=== PATIENT | female | born 1945 | race African-American/Black ===

== ENCOUNTER 2017-06-24 13:00 | Outpatient (CLI) | payer OTHER | END 2017-06-24 13:03 | disposition home or self-care (01) | LOC: RAD 501 13:00 | DX: J13 Pneumonia due to Streptococcus pneumoniae (principal) ==

== ENCOUNTER → 2017-06-24 | Outpatient (CLI) | payer OTHER ==
[~2017-06-24] VITALS: Ht 152.4 cm; Wt 94.3 kg
[~2017-06-24] MED LIST: ASPIRIN1 GM; ELIQUIS2.5 MG; LISINOPRIL20 MG; METFORMIN HCL500 M1; SIMVASTATIN20 MG
== END | disposition home or self-care (01) ==
LOC: PPHC 11:04
DX: J06.9 Acute upper respiratory infection, unspecified (principal)

== ENCOUNTER 2019-10-12 14:39 | Emergency (ER) | payer OTHER ==
[~2019-10-12] VITALS: Ht 175.3 cm; Wt 84.8 kg
== END 2019-10-12 16:45 | disposition home or self-care (01) ==
LOC: ER 14:39
DX: R07.89 Other chest pain (principal)

== ENCOUNTER 2022-11-21 14:57 | Emergency (ER) | payer OTHER ==
[~2022-11-21] VITALS: Ht 165.1 cm; Wt 95.3 kg
[2022-11-21] MEDS ORDERED: INDAPAMIDE2.5 MG PO (15:48)
== END 2022-11-21 22:02 | disposition home or self-care (01) ==
LOC: ER 14:57
DX: R00.2 Palpitations (principal); M19.90 Unspecified osteoarthritis, unspecified site; I50.9 Heart failure, unspecified; E78.00 Pure hypercholesterolemia, unspecified; E11.9 Type 2 diabetes mellitus without complications; Z79.84 Long term (current) use of oral hypoglycemic drugs; Z20.822 Contact with and (suspected) exposure to COVID-19